=== PATIENT | male | born 1950 | race Hispanic/Latino ===

== ENCOUNTER 2017-09-30 17:44 | Emergency (ER) | payer BC, OTHER ==
[2017-09-30] MEDS ORDERED: SODIUM CHLORIDE 0.9% 1000ML 1,000 ML IV ONE (18:20)
[2017-09-30] MEDS ORDERED: KETOROLAC TROMETHAMINE 15MG/ML ONE (18:21)
[2017-09-30] MEDS ORDERED: ACETAMINOPHEN EXTRA STRENGTH 500 MG TABLET ONE (18:43)
[2017-09-30 18:48] LABS: BASOPHILS % (AUTO) 0.4 % (0.0-5.0); EOSINOPHILS % (AUTO) 0.3 % (0.0-8.0); HEMATOCRIT 43.5 % (42-54); MEAN CORPUSCULAR HEMOGLOBIN 32.5 pg (27.0-33.0); MEAN CORPUSCULAR HGB CONC 35.1 g/dL (32.0-36.0); MEAN CORPUSCULAR VOLUME 92.7 fL (79-99); MONOCYTES % (AUTO) 15.9 % (3.0-13.0); NEUTROPHILS % (AUTO) 73.4 % (40.0-77.0); PLATELET COUNT (AUTO) 166 K/uL (130-400); RED BLOOD CELL COUNT(AUTO) 4.69 MIL/uL (4.50-6.20); RED CELL DISTRIBUTION WIDTH 13.1 % (11.0-15.5); WHITE BLOOD COUNT (AUTO) 7.2 K/uL (4.8-10.8)
[2017-09-30 18:57] LABS: CREATININE 0.9 mg/dL (0.5-1.5); POTASSIUM 3.4 mmol/L (3.5-5.1)
[2017-09-30 19:01] LABS: ALBUMIN 3.8 g/dL (3.5-5.0); BILIRUBIN,TOTAL 0.5 mg/dL (0.2-1.0); TOTAL PROTEIN, SERUM 8.2 g/dL (6.0-8.3)
[2017-09-30] MEDS ORDERED: DEXAMETHASONE SOD PHOSPHATE 10MG/ML 1ML VIAL ONE (19:23)
[2017-09-30] MEDS ORDERED: POTASSIUM CHLORIDE 20 MEQ ERTAB PO ONE (19:23)
[2017-09-30] MEDS ORDERED: LIDOCAINE HCL 2% JELLY 5 ML ONE (19:23)
[2017-09-30] MEDS ORDERED: METHYLPREDNISOLONE SOD SUCC 125MG/2ML VIAL ONE (19:24)
[2017-09-30] MEDS ORDERED: HYDROXYZINE HCL 25 MG TABLET ONE (19:24)
== END 2017-09-30 20:36 | disposition home or self-care (01) ==
LOC: EDH 17:44
DX: B02.9 Zoster without complications (principal); R51 Headache
CPT/HCPCS: 36415; 71046; 80053; 83605; 85025; 87040 ×2; 87804 ×2; 96361; 96374; 96375; 99285; J1100; J1885; J2930; J7030

== ENCOUNTER → 2022-11-15 | Outpatient (CLI) | payer MEDICARE ==
[~2022-11-15] MED LIST: GADOTERATE MEGLUMINE 10 MMOL/20 ML VIAL IV ONE
== END | disposition home or self-care (01) ==
LOC: RAH 07:33
PROVIDERS: ATTEND Family Medicine
DX: S83.242A Other tear of medial meniscus, current injury, left knee, initial encounter (principal); M17.12 Unilateral primary osteoarthritis, left knee; M25.762 Osteophyte, left knee; M25.462 Effusion, left knee; M25.862 Other specified joint disorders, left knee; M25.562 Pain in left knee; X58.XXXA Exposure to other specified factors, initial encounter; Y93.89 Activity, other specified; Y92.89 Other specified places as the place of occurrence of the external cause; Y99.8 Other external cause status
CPT/HCPCS: 73723; A9575

== ENCOUNTER 2023-12-22 05:13 | Observation (INO) | payer MEDICARE ==
[2023-12-17 10:02] LABS: BASOPHILS # (AUTO) 0.09 K/uL (0.00-0.20); BASOPHILS % (AUTO) 1.4 % (0.0-5.0); EOSINOPHILS # (AUTO) 0.24 K/uL (0.00-0.70); EOSINOPHILS % (AUTO) 3.7 % (0.0-8.0); HEMATOCRIT 41.6 % (42-54); IMMATURE GRANULOCYTE ABSOLUTE 0.02 K/uL (0-1); LYMPHOCYTES # (AUTO) 1.3 K/uL (1.0-4.8); LYMPHOCYTES % (AUTO) 20.1 % (21.0-51.0); MEAN CORPUSCULAR HEMOGLOBIN 32.7 pg (27.0-33.0); MEAN CORPUSCULAR HGB CONC 34.1 g/dL (32.0-36.0); MEAN CORPUSCULAR VOLUME 95.9 fL (79-99); MONOCYTES % (AUTO) 15.3 % (3.0-13.0); NEUTROPHILS # (AUTO) 3.8 K/uL (1.8-7.7); NEUTROPHILS % (AUTO) 59.2 % (40.0-77.0); PLATELET COUNT (AUTO) 170 K/uL (130-400); RED BLOOD CELL COUNT(AUTO) 4.34 MIL/uL (4.50-6.20); RED CELL DISTRIBUTION WIDTH 12.6 % (11.0-15.5); WHITE BLOOD COUNT (AUTO) 6.4 K/uL (4.8-10.8)
[2023-12-17 10:05] VITALS: BP 175/91; PULSE 63; RESP 18
[2023-12-17 10:12] LABS: CREATININE 0.7 mg/dL (0.5-1.3)
[~2023-12-22] VITALS: Ht 181.6 cm; Wt 89.5 kg
[2023-12-22] VITALS (28 sets, daily range): BP systolic 109–192; BP diastolic 60–127; PULSE 66–91; RESP 16–19; O2SAT 95–96
[~2023-12-22 05:13] MED LIST changes: +CALCIUM+MAG+ZINC PO; +CHOL100040 PO; -GADOTERATE MEGLUMINE 10 MMOL/20 ML VIAL IV ONE; +LOSA50TA64 PO; +PREVAGEN PO; +VITA1CAP PO
[2023-12-22 05:52] LABS: INR 0.96 (0.85-1.15); PROTHROMBIN TIME 11.4 SEC (9.6-11.6)
[2023-12-22 05:53] LABS: PARTIAL THROMBOPLASTIN TIME 25.1 SEC (26.3-35.5)
[2023-12-22] MEDS ORDERED: SUCCINYLCHOLINE CHLORIDE 20 MG/ML 10 ML VIAL ONE (06:25)
[2023-12-22] MEDS ORDERED: LIDOCAINE PF 100MG/5ML (2%) SYRINGE 5ML ONE (06:25)
[2023-12-22] MEDS ORDERED: NEOSTIGMINE METHYLSULFATE 1MG/ML IV ONE (06:26)
[2023-12-22] MEDS ORDERED: DEXAMETHASONE SOD PHOSPHATE 10MG/ML 1ML VIAL ONE (06:26)
[2023-12-22] MEDS ORDERED: ONDANSETRON 4MG INJ ONE ×2 (06:26→07:30)
[2023-12-22] MEDS ORDERED: ROCURONIUM BROMIDE 10MG/1ML 5ML VL ONE (06:26)
[2023-12-22] MEDS ORDERED: GLYCOPYRROLATE 0.2 MG/ML 5 ML VIAL ONE (06:26)
[2023-12-22] MEDS ORDERED: MIDAZOLAM HCL 1 MG/ML 2ML VIAL ONE (06:26)
[2023-12-22] MEDS ORDERED: PROPOFOL 10 MG/ML 20ML VIAL IV ONE (06:26)
[2023-12-22] MEDS ORDERED: FENTANYL CITRATE PF 50 MCG/1 ML 2ML VIAL ONE ×4 (06:27→08:56)
[2023-12-22] MEDS ORDERED: PHENYLEPHRINE HCL 10 MG/ML 1ML VIAL IV ONE (06:30)
[2023-12-22] MEDS ORDERED: TRANEXAMIC ACID 1000MG/10ML ONE (07:05)
[2023-12-22] MEDS ORDERED: CEFAZOLIN SODIUM 1 GM VIAL ONE (07:06)
[2023-12-22] MEDS ORDERED: GENTAMICIN SULFATE 80 MG/2 ML VIAL ONE (07:06)
[2023-12-22] MEDS: CEFAZOLIN SODIUM 2 GM VIAL ONE (07:18)
[2023-12-22] MEDS: 0.9%NACL 1000ML 1,000 ML IV ONE (07:19)
[2023-12-22] MEDS: CEFAZOLIN SODIUM 2 GM VIAL IVPB ONE (07:20)
[2023-12-22] MEDS: TRANEXAMIC ACID 1000MG/10ML IV ONE (07:22)
[2023-12-22] MEDS: 0.9%NACL 48.45 ML, ROPIVACAINE 0.5% 49.25ML, EPINEPH 0.5MG KETOROLAC 30MG,CLONIDINE 80MCG IV PRN (08:40)
[2023-12-22] MEDS ORDERED: ACETAMINOPHEN 325 MG TAB PO PRN ×2 (11:00)
[2023-12-22] MEDS ORDERED: DIPHENHYDRAMINE HCL 25 MG CAPSULE PO PRN (11:00)
[2023-12-22] MEDS ORDERED: BENZOCAINE/MENTH/CETYLPYRD CL 1 EACH LOZENGE MM PRN (11:00)
[2023-12-22] MEDS ORDERED: MAG/ALUM/SIMETH 30 ML UDCUP PO PRN (11:00)
[2023-12-22] MEDS ORDERED: LACTULOSE 20 GM/30 ML UDCUP PO PRN (11:00)
[2023-12-22] MEDS ORDERED: DiphenhydrAMINE HCL 50 MG/ML VIAL IM PRN (11:00)
[2023-12-22] MEDS ORDERED: DIPHENHYDRAMINE HCL 25 MG CAPSULE PO SCH (11:00)
[2023-12-22] MEDS ORDERED: CEFAZOLIN SODIUM 2 GM VIAL IVPB SCH (11:00)
[2023-12-22] MEDS ORDERED: ACETAMINOPHEN 325 MG TAB PO SCH (11:00)
[2023-12-22] MEDS ORDERED: DIPHENOXYLATE HCL/ATROPINE 2.5/0.025 MG TAB PO PRN (11:00)
[2023-12-22] MEDS ORDERED: ONDANSETRON 4MG INJ IVP PRN (11:00)
[2023-12-22] MEDS: HYDROMORPH /0.9% NACL/PF PCA 50 ML IV PRN (12:23)
[2023-12-22] MEDS: 0.9%NACL 1000ML 1,000 ML IV SCH (12:27)
[2023-12-22] MEDS: CEFAZOLIN SODIUM 2 GM VIAL IVPB SCH (16:31)
[2023-12-22] MEDS: LOSARTAN 50 MG TABLET PO SCH (19:21)
[2023-12-22] MEDS: LOSARTAN 50 MG TABLET ONE (19:44)
[2023-12-22] MEDS: TRAZODONE HCL 50 MG TAB PO SCH (20:49)
[2023-12-23 04:00] VITALS: BP 123/64; PULSE 67; RESP 18
[2023-12-23 04:20] LABS: HEMATOCRIT 30.8 % (42-54); MEAN CORPUSCULAR HGB CONC 33.8 g/dL (32.0-36.0); MEAN CORPUSCULAR VOLUME 97.8 fL (79-99); RED BLOOD CELL COUNT(AUTO) 3.15 MIL/uL (4.50-6.20); RED CELL DISTRIBUTION WIDTH 12.4 % (11.0-15.5); WHITE BLOOD COUNT (AUTO) 10.9 K/uL (4.8-10.8)
[2023-12-23 05:03] LABS: CREATININE 0.8 mg/dL (0.5-1.3); POTASSIUM 4.1 mmol/L (3.5-5.1)
[2023-12-23 08:00] VITALS: BP 108/57; PULSE 66; RESP 19; O2SAT 97
[2023-12-23] MEDS: RIVAROXABAN 10 MG TABLET PO SCH (08:48)
[2023-12-23 12:00] VITALS: BP 125/66; PULSE 66; RESP 18
[2023-12-23] MEDS: TAMSULOSIN HCL 0.4 MG CAP.ER.24H PO ONE (12:11)
[2023-12-23] MEDS: TRAMADOL HCL 50 MG TABLET PO PRN (12:34)
[2023-12-23] MEDS ORDERED: RIVA10TA PO (14:45)
== END 2023-12-23 15:30 | disposition home or self-care (01) ==
LOC: DAH 05:13 → DAHIP 05:14 → 4AH 10:55
PROVIDERS: ADMIT Orthopaedic Surgery; ATTEND Orthopaedic Surgery
DX: M17.12 Unilateral primary osteoarthritis, left knee (principal); I10 Essential (primary) hypertension; E78.5 Hyperlipidemia, unspecified; R73.03 Prediabetes; R94.31 Abnormal electrocardiogram [ECG] [EKG]; Z86.2 Personal history of diseases of the blood and blood-forming organs and certain disorders involving the immune mechanism
CPT/HCPCS: 80048 ×2; 85025; 36415 ×3; 93005; 87641; 27447; 96365; 96366 ×2; 96368; 85610; 85730; 82948 ×6; 97161; 97012; 97116 ×3; 97530 ×4; 85027; A6260; G0378 ×26; A4663; J7120; A4215 ×2; A4649 ×4; J3010 ×4; J0690 ×5; J3490 ×5; J1100; J0330; J7030 ×2; J0171; J2001; J1580; J2250; J2704; J2405 ×2; J1885; J2710; J2795; J2371; J0735; A6223; C1763 ×2; C1776; A5120; A4223; A4222; A4221; A6450; A4510

== ENCOUNTER 2024-06-07 04:40 | Observation (INO) | payer MEDICARE ==
[~2024-06-07] VITALS: Ht 180.3 cm; Wt 83.9 kg
[~2024-06-07 04:40] MED LIST changes: +RIVA10TA PO
[2024-06-07 05:08] LABS: BASOPHILS # (AUTO) 0.06 K/uL (0.00-0.20); BASOPHILS % (AUTO) 0.8 % (0.0-5.0); EOSINOPHILS # (AUTO) 0.15 K/uL (0.00-0.70); HEMATOCRIT 40.3 % (42-54); IMMATURE GRANULOCYTE ABSOLUTE 0.03 K/uL (0-1); LYMPHOCYTES # (AUTO) 0.5 K/uL (1.0-4.8); LYMPHOCYTES % (AUTO) 7.1 % (21.0-51.0); MEAN CORPUSCULAR HEMOGLOBIN 31.8 pg (27.0-33.0); MEAN CORPUSCULAR VOLUME 93.5 fL (79-99); MONOCYTES # (AUTO) 0.7 K/uL (0.1-1.0); MONOCYTES % (AUTO) 9.8 % (3.0-13.0); NEUTROPHILS # (AUTO) 5.9 K/uL (1.8-7.7); NEUTROPHILS % (AUTO) 79.9 % (40.0-77.0); PLATELET COUNT (AUTO) 152 K/uL (130-400); RED BLOOD CELL COUNT(AUTO) 4.31 MIL/uL (4.50-6.20); RED CELL DISTRIBUTION WIDTH 12.6 % (11.0-15.5); WHITE BLOOD COUNT (AUTO) 7.4 K/uL (4.8-10.8)
[2024-06-07 05:10] LABS: APPEARANCE,URINE CLEAR (CLEAR); BILIRUBIN,URINE NEGATIVE (NEGATIVE); COLOR,URINE YELLOW (YELLOW); GLUCOSE, URINE (UA) NEGATIVE (NEGATIVE); KETONES,URINE NEGATIVE (NEGATIVE); LEUKOCYTE ESTERASE ,URINE NEGATIVE Leu/uL (NEGATIVE); NITRATE,URINE NEGATIVE (NEGATIVE); PH,URINE 5.5 (5.0-8.0); PROTEIN,URINE NEGATIVE (NEGATIVE); UROBILINOGEN,URINE 3 mg/dL (0.2-1.0)
[2024-06-07 05:11] LABS: ADD UA MICROSCOPIC YES
[2024-06-07 05:28] LABS: CREATININE 0.8 mg/dL (0.5-1.3); POTASSIUM 3.6 mmol/L (3.5-5.1)
[2024-06-07] MEDS ORDERED: IOHEXOL-350 75 ML VIAL IV ONE (05:58)
[2024-06-07 06:13] LABS: ALBUMIN 3.9 g/dL (3.5-5.0); BILIRUBIN,DIRECT 0.3 mg/dL (0.0-0.3); BILIRUBIN,TOTAL 0.6 mg/dL (0.2-1.0); TOTAL PROTEIN, SERUM 7.4 g/dL (6.0-8.3)
[2024-06-07] MEDS: morPHINE 2 MG SYG IVP ONE (07:06)
[2024-06-07] MEDS ORDERED: hydrALAZine 25MG TABLET PO PRN (07:30)
[2024-06-07] MEDS ORDERED: guaiFENesin SUGAR-FREE 100 MG/5 ML UDCUP PO PRN (07:30)
[2024-06-07] MEDS ORDERED: ondanSETRON 4MG INJ IV PRN (07:30)
[2024-06-07] MEDS ORDERED: doCUSate SODIUM 100 MG CAP PO PRN (07:30)
[2024-06-07] MEDS ORDERED: acetaMINOPHEN 325 MG TAB PO PRN (07:30)
[2024-06-07] MEDS ORDERED: NITROGLYCERIN 0.4 MG SL TAB SL PRN (07:30)
[2024-06-07] MEDS: INSULIN humuLIN R 100 UNIT/ML 3ML SQ SCH (07:30)
[2024-06-07] MEDS ORDERED: LACTULOSE 20 GM/30 ML UDCUP PO PRN (07:30)
[2024-06-07] MEDS: LACTATED RINGERS 1000ML 1,000 ML IV SCH (07:58)
[2024-06-07] MEDS ORDERED: BisaCODYL 10 MG SUPP.RECT RC PRN (08:00)
[2024-06-07] MEDS: BisaCODYL 10 MG SUPP.RECT RC ONE (08:03)
[2024-06-07] MEDS: MAG/ALUM/SIMETH 30 ML UDCUP ONE (08:21)
[2024-06-07] MEDS: LIDOCAINE HCL 2% VISCOUS 15 ML UDCUP ONE (08:22)
[2024-06-07] MEDS: DICYCLOMINE HCL 10 MG/5 ML ML PO ONE (08:22)
[2024-06-07] MEDS: polyETHYLene GLYCol 3350 17 GM POWD.PACK PO SCH (08:23)
[2024-06-07] MEDS: LIDOCAINE HCL 2% VISCOUS 30 ML, MAG/ALUM/SIMETH 30ML 30 ML, DICYCLOMINE HCL 20 MG PO SCH (08:23)
[2024-06-07] MEDS: FAMOTIDINE 20MG TAB PO SCH (08:23)
[2024-06-07] MEDS: BisaCODYL 5 MG TABLET.DR PO SCH (08:23)
[2024-06-07 09:20] VITALS: BP 135/76; PULSE 66; RESP 18; TEMP 98.2; O2SAT 97
[2024-06-07 12:00] VITALS: BP 129/78; PULSE 61; RESP 20; TEMP 97.9
[2024-06-07] MEDS: CEFTRIAXONE 2GM VIAL IVPB SCH (12:28)
[2024-06-07] MEDS: ENOXAPARIN SODIUM 40 MG/0.4 ML SYRINGE SQ SCH (12:33)
[2024-06-07 13:17] LABS: AMPHET/METH SCREEN,URINE NEGATIVE (NEGATIVE); BARBITURATE SCREEN, URINE NEGATIVE (NEGATIVE); BENZODIAZEPINES SCREEN,URINE NEGATIVE (NEGATIVE); CANNABINOID SCREEN,URINE NEGATIVE (NEGATIVE); COCAINE SCREEN,URINE NEGATIVE (NEGATIVE); OPIATE SCREEN,URINE NEGATIVE (NEGATIVE); PHENCYCLIDINE SCREEN,URINE NEGATIVE (NEGATIVE)
[2024-06-07] MEDS ORDERED: COMPOUND PO MISCELLANEOUS 1 EACH MISC MISC PRN (14:30)
[2024-06-07 16:00] VITALS: BP 127/72; PULSE 58; RESP 18; TEMP 98.1
[2024-06-07 19:00] VITALS: BP 133/73; PULSE 56; RESP 19; TEMP 98.2
[2024-06-07 20:32] VITALS: O2SAT 98
[2024-06-07 23:00] VITALS: BP 143/76; PULSE 57; RESP 19; TEMP 98.4
[2024-06-08 04:00] VITALS: BP 127/76; PULSE 57; RESP 19; TEMP 98.4
[2024-06-08 04:06] LABS: HEPATITIS B CORE IGM ANTIBODY Non-Reactive (Negative); HEPATITIS B SURFACE ANTIGEN Non-Reactive (Nonreactive); HEPATITIS C ANTIBODY Non-Reactive (Nonreactive)
[2024-06-08 04:08] LABS: HEPATITIS A IGM ANTIBODY Reactive (Nonreactive)
[2024-06-08 06:43] LABS: BASOPHILS # (AUTO) 0.06 K/uL (0.00-0.20); BASOPHILS % (AUTO) 1.2 % (0.0-5.0); EOSINOPHILS # (AUTO) 0.12 K/uL (0.00-0.70); EOSINOPHILS % (AUTO) 2.4 % (0.0-8.0); IMMATURE GRANULOCYTE ABSOLUTE 0.01 K/uL (0-1); LYMPHOCYTES # (AUTO) 0.8 K/uL (1.0-4.8); LYMPHOCYTES % (AUTO) 16.2 % (21.0-51.0); MEAN CORPUSCULAR HEMOGLOBIN 31.9 pg (27.0-33.0); MEAN CORPUSCULAR HGB CONC 33.8 g/dL (32.0-36.0); MEAN CORPUSCULAR VOLUME 94.2 fL (79-99); MONOCYTES # (AUTO) 0.8 K/uL (0.1-1.0); MONOCYTES % (AUTO) 16.4 % (3.0-13.0); NEUTROPHILS # (AUTO) 3.2 K/uL (1.8-7.7); NEUTROPHILS % (AUTO) 63.6 % (40.0-77.0); PLATELET COUNT (AUTO) 144 K/uL (130-400); RED BLOOD CELL COUNT(AUTO) 4.14 MIL/uL (4.50-6.20); RED CELL DISTRIBUTION WIDTH 12.4 % (11.0-15.5); WHITE BLOOD COUNT (AUTO) 5.1 K/uL (4.8-10.8)
[2024-06-08 07:02] LABS: ALBUMIN 3.4 g/dL (3.5-5.0); BILIRUBIN,DIRECT 0.2 mg/dL (0.0-0.3); BILIRUBIN,TOTAL 0.6 mg/dL (0.2-1.0); CREATININE 0.9 mg/dL (0.5-1.3); TOTAL PROTEIN, SERUM 6.8 g/dL (6.0-8.3)
[2024-06-08 07:31] VITALS: O2SAT 97
[2024-06-08 08:00] VITALS: BP 149/91; PULSE 55; RESP 20; TEMP 97.8
[2024-06-08] MEDS ORDERED: LOSA50TA64 PO (10:02)
[2024-06-08 12:00] VITALS: BP 125/63; PULSE 60; RESP 20; TEMP 97.8
[2024-06-08 14:45] VITALS: O2SAT 97
== END 2024-06-08 15:40 | disposition home or self-care (01) ==
LOC: EDH 04:40 → EDHIP 07:25 → 3DH 09:20
PROVIDERS: ADMIT Internal Medicine; ATTEND Internal Medicine
DX: N30.00 Acute cystitis without hematuria (principal); K59.09 Other constipation; K76.89 Other specified diseases of liver; I10 Essential (primary) hypertension; E86.0 Dehydration; E11.9 Type 2 diabetes mellitus without complications; D64.9 Anemia, unspecified; M54.9 Dorsalgia, unspecified; R11.10 Vomiting, unspecified; Z90.49 Acquired absence of other specified parts of digestive tract; Z96.652 Presence of left artificial knee joint; Z79.899 Other long term (current) drug therapy; Z98.890 Other specified postprocedural states
CPT/HCPCS: 96372 ×2; 96361 ×2; 96365; 96366; 96375; 99285; 80076 ×2; 84484 ×2; 80048 ×2; 80305; 83690; 85025 ×2; 82948 ×5; 80074; 81001; 36415 ×2; 71045; 74177; 76705; 93005; 96376; G0378 ×32; J2270; J0696 ×2; J1650 ×2; Q9967